=== PATIENT | male | born 1985 | race Two or more races ===

== ENCOUNTER 2016-12-14 19:09 | Emergency (ER) | payer MEDICAID ==
[~2016-12-14] VITALS: Ht 170.2 cm; Wt 47.3 kg
[2016-12-14 20:24] VITALS: BP 120/74
[2016-12-14] MEDS ORDERED: KETOROLAC 30MG/ML VIAL IV STA (20:34)
[2016-12-14] MEDS ORDERED: SODIUM CHLORIDE 0.9% 500 ML IV ONE (20:34)
[2016-12-14] MEDS ORDERED: MAGNESIUM/ALUMINUM HYDROXIDE/SIMETHICONE 30ML UDC PO STA (20:34)
[2016-12-14] MEDS ORDERED: ONDANSETRON HCL 4MG/2ML VIAL IV STA (20:34)
[2016-12-14] MEDS ORDERED: SODIUM CHLORIDE 0.9% 1,000 ML IV ONE (20:34)
[2016-12-14] MEDS ORDERED: FAMOTIDINE 20MG/2ML VIAL IV ONE (20:45)
== END 2016-12-14 21:20 | disposition left against medical advice (07) ==
LOC: ER 20:13
DX: R07.9 Chest pain, unspecified (principal); R10.13 Epigastric pain; R42 Dizziness and giddiness
CPT/HCPCS: 71010; 73560; 99284; J7030; J7040; Z7610; 99285